=== PATIENT | male | born 1975 | race Caucasian/White ===

== ENCOUNTER 2019-02-12 13:59 | Emergency (ER) | payer MEDICARE ==
[~2019-02-12 13:59] MED LIST: GABA-338 PO; MELO15TA13 PO; WEL100T PO
--- NOTE | 2019-02-12 15:04 | NUR ---
Called patient with no answer.
== END 2019-02-12 15:05 | disposition home or self-care (01) ==
LOC: ER 13:59
DX: R45.851 Suicidal ideations (principal); Z53.21 Procedure and treatment not carried out due to patient leaving prior to being seen by health care provider